=== PATIENT | female | born 1975 | race Caucasian/White ===

== ENCOUNTER 2018-08-11 11:57 | Inpatient (IN) | payer SELFPAY ==
[~2018-08-11] VITALS: Ht 170.2 cm; Wt 90.9 kg
[2018-08-11 13:09] LABS: BASOPHILS 0.2 % (0-2); EOSINOPHILS 0.5 % (0-7); HEMATOCRIT 34.6 % (36.0-48.0); HEMOGLOBIN 11.3 g/dL (12-16); IMMATURE GRANULOCYTES 0.2 % (0-5); MCH 23.7 pg (26.0-34.0); MCHC 32.7 g/dL (31.0-37.0); MCV 72.7 fL (80.0-100.0); MEAN PLATELET VOLUME 9.1 fL (7.4-10.4); MONOCYTES 5.3 % (2-11); NEUTROPHILS 77.8 % (40-80); PLATELET COUNT 308 10x3/uL (130-400); RBC 4.76 10x6/uL (4.00-5.40); RDW 15.3 % (11.5-14.5); WBC 11.5 10x3/uL (4.8-10.8)
[2018-08-11 13:10] LABS: APPEARANCE HAZY (CLEAR); BILIRUBIN NEGATIVE (NEGATIVE); COLOR YELLOW (YELLOW); GLUCOSE NEGATIVE (NEGATIVE); KETONE NEGATIVE (NEGATIVE); NITRITE NEGATIVE (NEGATIVE); PROTEIN 1+ mg/dL (NEGATIVE); UROBILINOGEN NORMAL (NORMAL)
[2018-08-11 13:17] LABS: BACTERIA MANY /hpf (NONE SEEN); EPITHELIAL CELLS 0-5 /hpf (0-5); RED CELLS - URINE 0-5 /hpf (0-5); WHITE CELLS - URINE 0-5 /hpf (0-5); YEAST >1+ /hpf (NONE SEEN)
[2018-08-11 13:24] LABS: ALBUMIN 3.6 g/dL (3.4-5.0); ANION GAP 15.2 mmol/L (8-16); BILIRUBIN - TOTAL 0.65 mg/dL (0.2-1.3); CALCIUM 9.1 mg/dL (8.5-10.1); CARBON DIOXIDE 23.5 mmol/L (21.0-32.0); CREATININE - SERUM 0.9 mg/dL (0.6-1.3); POTASSIUM - SERUM 3.7 mmol/L (3.5-5.1); PROTEIN - SERUM 8.4 g/dL (6.4-8.2)
[2018-08-11 16:16] VITALS: BP 135/60
[2018-08-11] MEDS ORDERED: COMPAZINE5 MG PO (16:46)
[2018-08-11] MEDS ORDERED: BENTYL 20 MG TA20 MG PO (16:46)
[2018-08-11 19:49] VITALS: BP 143/67
[2018-08-11 21:20] VITALS: BP 130/63
--- NOTE | 2018-08-11 21:20 | NUR ---
RECEIVED PT FROM ER VIA W/C. PT IS DROWSY. DIFF ANSWERING QUESTIONS DURING ASSESSMENT. DENIES PAIN AT THIS TIME. SALINE LOCK NOTED TO RT AC. V/S STABLE. NO DISTRESS. CL IN REACH.
[2018-08-12] VITALS (12 sets, daily range): BP systolic 108–149; BP diastolic 50–73; Ht 170.2 cm; Wt 90.9 kg
--- NOTE | 2018-08-12 03:45 | NUR ---
HAS BEEN ASLEEP ALL NIGHT. V/S STABLE. NO N/V OR PAIN. CL IN REACH. NS @ 125 ML/HR INFUSING IN RT AC WITHOUT DIFF.
[2018-08-12 10:01] LABS: T4 THYROXINE 7.7 ug/dL (4.7-13.3); THYROID STIMULATING HORMONE 4.24 uIU/mL (0.36-3.74)
--- NOTE | 2018-08-12 10:37 | NUR ---
PATIENT IS ALERT/ORIENT. SIGNED CONSENTS FOR LAPAROSCOPIC CHOLECYSTECTOMY. SHOWER GIVEN. WALKS AROUND ROOM BY SELF. CALL LIGHT WITHIN REACH. WILL CONTINUE WITH PLAN OF CARE
[2018-08-12 13:18] LABS: HCG URINE NEGATIVE (NEGATIVE)
--- NOTE | 2018-08-12 13:21 | NUR ---
SURGERY HERE TO TAKE PATIENT FOR LAPAROSCOPIC CHOLECYSTECTOMY
--- NOTE | 2018-08-12 14:07 | NUR ---
REFUSED SCD'S PER RENUKA/RAGHU
[2018-08-12] MEDS ORDERED: HYDROCODON-ACE1 EAC7 PO (14:49)
--- NOTE | 2018-08-12 15:26 | NUR ---
SURGERY CALLED TO GIVE THIS NURSE REPORT. WILL BE BRING PATIENT BACK TO ROOM.
--- NOTE | 2018-08-12 16:44 | NUR ---
[employer] SYSTEM IS NOT RESPONDING 1550 PATIENT'S MOTHER CAME TO THE DESK REQUESTING INFORMATION BE SENT TO THE DISTRICT COURT. PATIENT HAS AN APPOINTMENT FOR 1300 08/13/18. TC TO [phone]. ROBERTO SPOKE WITH CO[employer]. LETTER FOR PATIENTS IN THE HOSPITAL AND FACE SHEET FAXED TO [phone]. COPY OF LETTER, FACE SHEET AND CONFIRMATION COPY GIVEN TO THE PATIENT'S MOTHER. COPY TO THE PATIENT CHART.
--- NOTE | 2018-08-12 23:08 | NUR ---
PATIENT RESTING IN BED AND DENIES NEEDS AT THIS TIME. ADMINISTERED MEDS PER ORDERS. BED IN LOWEST POSITION AND CALL LIGHT WITHIN REACH. ENCOURAGED THE PATIENT TO CALL IF SHE HAS NEEDS. WILL CONTINUE TO MONITOR.
--- NOTE | 2018-08-13 01:20 | NUR ---
GORGE SCHULTZ RESITED PATIENT'S IV IN HER RIGHT HAND WITH A 22G
[2018-08-13 01:32] VITALS: BP 96/55
[2018-08-13 04:00] VITALS: BP 99/52
--- NOTE | 2018-08-13 06:50 | HP ---
PATIENT: PLACIDO HERNÁNDEZ MEDICAL RECORD: [id number] ACCOUNT: [id number] LOCATION:[facility] D1202 : 75 ADMISSION DATE: 08/11/18 PCP: LENKA IRVING MD HISTORY AND PHYSICAL EXAMINATION DATE OF ADMISSION: 08/11/2018. CHIEF COMPLAINT: Abdominal pain. HISTORY OF PRESENT ILLNESS: The patient is a 43-year-old female who states that for the last several days, she has had upper abdominal discomfort. She has had no fever, no chills. She has had nausea and vomiting, presents to the Emergency Room for evaluation. PAST MEDICAL HISTORY: Significant that she has had a history of having hypothyroidism, has had acute pharyngitis in the past. PAST SURGICAL HISTORY: Two sections, one in 1996, one in 1999. FAMILY HISTORY: Father had diabetes, renal failure, and hyperlipidemia. Mother is diabetic, also has hypertension. 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 Educated through the 10th grade. She is . HABITS: She denies any ethanol, tobacco use or abuse. MEDICATIONS: Currently are none. ALLERGIES: None. REVIEW OF SYSTEMS: CONSTITUTIONAL: She denies any headaches, seizure or syncope. She denies any change in visual or auditory acuity. PULMONARY: She denies any shortness of breath, cough, congestion, history of TB, asthma, bronchitis. CARDIOVASCULAR: No chest pain, palpitation, PND or orthopnea. GASTROINTESTINAL: No chronic nausea, vomiting, melena or hematochezia. GENITOURINARY: No urgency, frequency, or dysuria. PHYSICAL EXAMINATION: VITAL SIGNS: Her temperature is 97.5, blood pressure 138/63, pulse is 86. GENERAL: She is alert. She is oriented times 3. HEENT: Head is normocephalic. No lesions. Ears: TMs clear. Eyes: Pupils equal, round, reactive to light. Her extraocular movements are intact. Nasal cavity, oral cavity, oropharynx clear. NECK: Supple. There is no adenopathy. HEART: Regular. LUNGS: Clear. ABDOMEN: The patient does have pain in the right upper quadrant with some guarding. Otherwise, the abdomen is unremarkable. EXTREMITIES: Lower extremities have no edema. LABORATORY DATA: White count was 11.5, hemoglobin 11.3, hematocrit 34.6, her platelets were 308. She had a sodium of 136, potassium 3.7, chloride 101, CO2 HISTORY AND PHYSICAL [id number] NOVEMBER,PLACIDO L is 23.5, BUN is 7, creatinine 0.9, glucose 117. The patient had an abdominal CT scan, which did reveal gallbladder distention with suggestion of gallbladder wall thickening, possible pericholecystic inflammation. Gallbladder ultrasound revealed cholelithiasis with large stone noted in the region of the gallbladder neck. Gallbladder was distended showing pericholecystic edema as well as gallbladder wall thickening. ASSESSMENT: Acute cholecystitis, history of hypothyroidism. PLAN: The patient is admitted. IV hydration. She will be kept n.p.o. Surgical consultation for laparoscopic cholecystectomy. TRANSINT:[id number] Voice Confirmation ID: [id number] DOCUMENT ID: [id number] LENKA IRVING MD at 0650 CC: [id number] DICTATION DATE: 08/12/18 0652 HYDRAULIC CONTROLS TECHNICIAN: 08/12/18 [address] [facility] [address] [place] [address]
[2018-08-13 07:00] LABS: BASOPHILS 0 % (0-2); EOSINOPHILS 0 % (0-7); HEMATOCRIT 31.7 % (36.0-48.0); HEMOGLOBIN 10.1 g/dL (12-16); IMMATURE GRANULOCYTES 0.2 % (0-5); LYMPHOCYTES 6.1 % (15-50); MCH 23.4 pg (26.0-34.0); MCHC 31.9 g/dL (31.0-37.0); MCV 73.4 fL (80.0-100.0); MEAN PLATELET VOLUME 9.6 fL (7.4-10.4); MONOCYTES 2.3 % (2-11); NEUTROPHILS 91.4 % (40-80); PLATELET COUNT 279 10x3/uL (130-400); RBC 4.32 10x6/uL (4.00-5.40); RDW 15.8 % (11.5-14.5); WBC 12.1 10x3/uL (4.8-10.8)
[2018-08-13 07:03] LABS: ANION GAP 16.9 mmol/L (8-16); POTASSIUM - SERUM 3.9 mmol/L (3.5-5.1)
[2018-08-13 07:06] LABS: CREATININE - SERUM 1.3 mg/dL (0.6-1.3)
--- NOTE | 2018-08-13 07:39 | NUR ---
PT IN BED, WATCHING TV. A/O X4, RESP EVEN AND NONLABORED ON RA. RT HAND IV INFUSING NS AT 50. 4 SMALL INCISIONS TO ABD. PT DENIES ANY PAIN AT THIS TIME. JUST HAD BM WHICH WAS REGULAR. PT DENIES ANY NEEDS AT THIS TIME. CALL LIGHT IN REACH, NAD NOTED, WILL CONTINUE PLAN OF CARE.
[2018-08-13 08:32] VITALS: BP 100/54
--- NOTE | 2018-08-13 08:58 | NUR ---
CALLED PHARMACY AND SPOKE WITH ALLEN, INFORMED HER THAT I NEED MOM FOR PT AND PEPCID IV.
--- NOTE | 2018-08-13 12:29 | NUR ---
IVBP MEFOXIN HUNG AT THIS TIME. ALSO PROVIDED PT WITH LEMON TOHONO [place] SODA. PT DDENIES ANY NEEDS AT THIS TIME. CALL LIGHT IN REACH, FAMILY AT BEDSIDE, NAD NOTED, WILL CONTINUE PLAN OF CARE.
--- NOTE | 2018-08-13 17:25 | NUR ---
PROVIDED VERBAL AND WRITTEN DISCHARGE TEACHING, TO PT WHO VERBALIZED UNDERSTANDING REGARDING TEACHING. D/C RT HAND IV WITH CATHETER TIP INTACT. PT WILL NOTIFY THIS NURSE WHEN READY FOR WHEELCHAIR, ALSO PROVIDED PT WITH SCRIPT FOR NORCO.
--- NOTE | 2018-08-13 18:14 | NUR ---
PT LEFT UNIT VIA WHEELCHAIR, WITH ALL BELONGINGS, ACCOMPANIED BY FAMILY, NAD NOTED.
== END 2018-08-13 18:15 | disposition home or self-care (01) | DRG 419 ==
LOC: D.ER 11:57 → D.M3 20:25
PROVIDERS: Anesthesiology; Family Medicine; Surgery; ADMIT Family Medicine
PROC: 0FT44ZZ Resection of Gallbladder, Percutaneous Endoscopic Approach (ICD-10-PCS; principal; 2018-08-12 13:45)
DX: K80.00 Calculus of gallbladder with acute cholecystitis without obstruction (principal); E03.9 Hypothyroidism, unspecified